=== PATIENT | female | born 1980 | race Caucasian/White ===

== ENCOUNTER 2018-03-29 09:55 | Inpatient (IN) ==
[2018-03-29] MEDS ORDERED: Sod Chloride 0.9% Inj 1,000 ML IV.CONT PRN (10:32)
[2018-03-29] MEDS ORDERED: Naloxone Inj 0.4 MG/ML Vial IV.PUSH PRN (10:32)
[2018-03-29] MEDS ORDERED: Sodium Chlor 0.9% Inj 500 ML IV.SIG PRN (10:32)
[2018-03-29] MEDS ORDERED: fentaNYL Citrate Inj 100 MCG/2 ML Ampul IV.PUSH PRN ×2 (10:32)
[2018-03-29] MEDS ORDERED: Oxytocin 30 Units/500ml Premix 30 UNITS/500 ML BAG IV.SIG ONE (10:32)
--- NOTE | 2018-03-29 10:38 | P.HPOB ---
History of Present Illness Primary Care Physician: Anthony Manning Chief Complaint: Contractions History of Present Illness: This patient is 37-year-old white female A2 at [address] Manning for care and presents complaining of contractions, no bleeding or leakage of fluid. Baby is active, NST is reactive she is eliseo every 2 -3 minutes Weeks Gestation:: 38 Para: 0 : 3 Total # of Miscarriage(s): 2 Review of Systems All other systems reviewed negative except as stated in HPI PMFSH - Tobacco History Smoking Status: Never smoker - Alcohol History How Often Do You Have a Drink Containing Alcohol: Never - Substance Use History Substance History: No History of Abuse - Travel History History of Recent Travel: No Recent Travel in the [place] Within the Last 8 Weeks: No Recent Travel Out of the Country Within the Last 8 Weeks: No Medications and Allergies Active Medications: Active Medications Citric Acid/Sodium Citrate (Sodium Citrate/Citric Acid Liq) 30 ml PO [employer] SHAILESH Stop: 04/02/18 10:44 Fentanyl Citrate (Fentanyl Inj) 50 mcg IV.PUSH Q1H PRN PRN Reason: Pain Scale 3 - 5 Fentanyl Citrate (Fentanyl Inj) 100 mcg IV.PUSH Q1H PRN PRN Reason: PAIN SCALE 6 TO 10 Lactated Ringer's (Lr 1000 Ml Inj) 1,000 mls @ 3,000 mls/hr IV.SIG UNSCH PRN PRN Reason: compromise or epidural Lactated Ringer's (Lr 1000 Ml Inj) 1,000 mls @ 125 mls/hr IV.CONT .Q8H SHAILESH Sodium Chloride (Ns Inj) 1,000 mls @ 100 mls/hr IV.CONT .Q10H PRN PRN Reason: SEE LABEL COMMENTS Oxytocin (Pitocin 30 Units/Ns 500 Ml Premix) 30 units in 500 mls @ 999 mls/hr IV.SIG BOLUS ONE Stop: 03/29/18 11:02 Sodium Chloride (Ns Inj) 500 mls @ 1,000 mls/hr IV.SIG UNSCH PRN PRN Reason: SEE LABEL COMMENTS Lidocaine HCl (Xylocaine 1% Inj) 0.1 ml I-DERMAL PRN PRN PRN Reason: For IV start Stop: 04/01/18 10:31 Lidocaine HCl (Xylocaine 1% Inj) 10 ml INFILTRATN PRN PRN PRN Reason: For episiotomy repair Stop: 03/31/18 10:31 Mineral Oil (Muri-Lube Oil) 10 ml TOPICAL PRN PRN PRN Reason: PRN perineal massage Naloxone HCl (Narcan Inj) 0.1 mg IV.PUSH Q2M PRN PRN Reason: for opiate reversal Allergies Allergy/AdvReac Type Severity Reaction Status Date / Time Penicillins Allergy Severe ITCHY Verified 09/01/17 00:46 Home Medications Medication Instructions Recorded Confirmed Type Vitamin 1 tab CHEW DAILY 03/02/18 03/02/18 History citalopram 03/02/18 History ondansetron [Zofran ODT] 1 tab PO Q6HR 03/02/18 03/02/18 History Exam Vital signs: Vital Signs 03/29/18 10:20 Temperature 98.8 F Pulse Rate 81 Respiratory Rate 19 Blood Pressure 127/86 Narrative: GENERAL: Well-nourished, well-developed patient. SKIN: Warm and dry. HEAD: Normocephalic and atraumatic. EYES: No scleral icterus. No injection or drainage. ENT: No nasal drainage noted. Mucous membranes pink. Airway patent. NECK: Supple, trachea midline. No JVD. CARDIOVASCULAR: Regular rate and rhythm without murmurs, gallops, or rubs. RESPIRATORY: Breath sounds equal bilaterally. No accessory muscle use. BREASTS: Bilateral exam showed no masses , no retractions, no nipple discharge. ABDOMEN/GI: Abdomen soft, non-tender, bowel sounds present, no rebound, no guarding Gravid to [38-] weeks size Fundal Height: [-38] GENITOURINARY: External Genitalia: intact and normal in appearance BUS glands: [-] Cervix: [post-] Dilatation: [4-] Effacement: [-90] Station: [-1] Presentation: [vtx-] Membranes: [intact ] Uterine Contractions: [q 2-3 min-] FHT's: Category: [1-] Baseline: [133-] Reactive: [R-] Variability: [mod-] Decels: [0-] EXTREMITIES: No cyanosis or edema. BACK: Nontender without obvious deformity. No CVA tenderness. NEUROLOGICAL: Awake and alert. Motor and sensory grossly within normal limits. Five out of 5 muscle strength in all muscle groups. Normal speech. Results - Labs Group B Strep: Negative Caprini VTE Risk Assessment Caprini VTE Risk Assessment: No/Low Risk (score <= 1) Caprini Risk Assessment Model: Point Value = 1 Point Value = 2 Point Value = 3 Point Value = 5 Age 41-60 Minor surgery BMI > 25 kg/m2 Swollen legs Varicose veins or History of unexplained or recurrent spontaneous Oral contraceptives or hormone replacement Sepsis (< 1 month) Serious lung disease, including pneumonia (< 1 month) Abnormal pulmonary function Acute myocardial infarction Congestive heart failure (< 1 month) History of inflammatory bowel disease Medical patient at bed rest Age 61-74 Arthroscopic surgery Major open surgery (> 45 min) Laparoscopic surgery (> 45 min) Malignancy Confined to bed (> 72 hours) Immobilizing plaster cast Central venous access Age >= 75 History of VTE Family history of VTE Factor V Leiden Prothrombin [id number] Lupus anticoagulant Anticardiolipin antibodies Elevated serum homocysteine Heparin-induced thrombocytopenia Other congenital or acquired thrombophilia Stroke (< 1 month) Elective arthroplasty Hip, pelvis, or leg fracture Acute spinal cord injury (< 1 month) Prophylaxis Regimen: Total Risk Factor Score Risk Level Prophylaxis Regimen 0-1 Low Early ambulation 2 Moderate Order ONE of the following: *Sequential Compression Device (SCD) *Heparin 5000 units SQ BID 3-4 Higher Order ONE of the following medications: *Heparin 5000 units SQ TID *Enoxaparin/Lovenox 40 mg SQ daily (WT < 150 kg, CrCl > 30 mL/min) *Enoxaparin/Lovenox 30 mg SQ daily (WT < 150 kg, CrCl > 10-29 mL/min) *Enoxaparin/Lovenox 30 mg SQ BID (WT < 150 kg, CrCl > 30 mL/min) AND/OR *Sequential Compression Device (SCD) 5 or more Highest Order ONE of the following medications: *Heparin 5000 units SQ TID (Preferred with Epidurals) *Enoxaparin/Lovenox 40 mg SQ daily (WT < 150 kg, CrCl > 30 mL/min) *Enoxaparin/Lovenox 30 mg SQ daily (WT < 150 kg, CrCl > 10-29 mL/min) *Enoxaparin/Lovenox 30 mg SQ BID (WT < 150 kg, CrCl > 30 mL/min) AND *Sequential Compression Device (SCD) Assessment and Plan - Diagnosis (1) Uterine contractions during Code(s): O62.2 - Other uterine inertia Status: Acute (2) 38 weeks gestation of Code(s): Z3A.38 - 38 weeks gestation of Status: Acute - Plan This 38-week primiparous patient is in early labor with a cervix that is 490/-1 /vertex and that she sees Dr. Manning for care. NST is reactive contractions noted on the monitor that she describes as painful. She is having no other obstetric problem or complaint. Plan for this patient is admit to labor and delivery, augment labor as needed, anticipate vaginal delivery discussed with her OB provider
[2018-03-29] MEDS ORDERED: Citric Acid/Sodium Citrate Liq 30 ML UDC PO SCH (10:45)
[2018-03-29 11:41] LABS: Baso % (Auto) 0.4 % (0.0-2.0); Eos % (Auto) 0.4 % (0.0-4.0); Hematocrit 34.4 % (35.0-46.0); Hemoglobin 10.7 gm/dL (11.6-15.3); Lymph # (Auto) 1.8 th/mm3 (1.0-4.8); Lymph % (Auto) 18.2 % (9.0-44.0); Mean Corpuscular HGB Conc 31.2 % (32.0-36.0); Mean Corpuscular Hemoglobin 24.2 pg (27.0-34.0); Mean Corpuscular Volume 77.7 fL (80.0-100.0); Mean Platelet Volume 11.4 fL (7.0-11.0); Mono # (Auto) 0.8 th/mm3 (0.0-0.9); Mono % (Auto) 7.8 % (0.0-8.0); Neut # (Auto) 7.1 th/mm3 (1.8-7.7); Neut % (Auto) 73.2 % (16.0-70.0); Platelet Count 214 th/mm3 (150-450); Red Blood Count 4.43 mil/mm3 (4.00-5.30); Red Cell Distribution Width 15.5 % (11.6-17.2); White Blood Count 9.7 th/mm3 (4.0-11.0)
[2018-03-29 11:52] LABS: Amphetamine Urine With Conf Neg (Neg); Benzodiazepine Urine With Conf Neg (Neg)
[2018-03-29 11:54] LABS: Bacteria,Urine Occasional /hpf; Bilirubin,Urine Negative (Negative); Clarity,Urine Hazy (Clear); Color,Urine Yellow (Yellw/Straw); Glucose,Urine (UA) Negative (Negative); Hyaline Casts,Urine 3 /lpf (0-3); Leukocyte Esterase,Urine Large (Negative); Mucus,Urine Few /lpf (Occasional); Nitrite,Urine Negative (Negative); Specific Gravity,Urine 1.019 (1.002-1.035); Squamous Epithelial Cell,Urine 14 /hpf (0-5)
[2018-03-29] MEDS ORDERED: fentaNYL 2MCG-Bupiv 0.125% Epi 150 ML EPIDURAL ONE (11:56)
[2018-03-29] MEDS ORDERED: Oxytocin 30 Units/500ml Premix 30 UNITS/500 ML BAG IV.SIG PRN (14:09)
[2018-03-29] MEDS ORDERED: fentaNYL Citrate Inj 100 MCG/2 ML Ampul EPIDURAL ONE (15:13)
[2018-03-29] MEDS ORDERED: fentaNYL 2MCG-Bupiv 0.125% Epi 150 ML EPIDURAL PRN (15:13)
[2018-03-30] MEDS ORDERED: Witch Hazel 50%/Glyderin 12.5% 40 Pad Jar RECTAL PRN (00:51)
[2018-03-30] MEDS ORDERED: Benzocaine 20% Top Spray 60 ML Can TOPICAL PRN (00:51)
[2018-03-30] MEDS ORDERED: Bisacodyl 10 MG Supp RECTAL PRN (00:51)
[2018-03-30] MEDS ORDERED: Zolpidem Tartrate 5 MG Tablet PO PRN (00:51)
[2018-03-30] MEDS ORDERED: Oxytocin 30 Units/500ml Premix 30 UNITS/500 ML BAG IV.CONT PRN (00:51)
[2018-03-30] MEDS ORDERED: Naloxone Inj 0.4 MG/ML Vial IV.PUSH PRN (00:51)
--- NOTE | 2018-03-30 00:51 | P.OBDELI ---
Weeks Gestation: 38 Patient Started Active Labor: Yes Artificial Rupture of Membrane: Yes Anesthesia: Epidural Episiotomy: none Vaginal Delivery: Normal, Spontaneous Presentation: Occiput anterior Nuchal Cord: x2 Delayed Cord Clamping (45 sec): No Placenta: Spontaneous delivery, Intact, 3 vessel cord Laceration: Perineal, 1 deg Repair: Chromic running Estimated blood loss (mL): 300 Infant: Male
--- NOTE | 2018-03-30 07:01 | P.PNOB ---
Subjective Post day: 0 Objective Vital Signs/I&O: Vital Signs 03/29/18 10:20 03/29/18 13:13 03/29/18 13:21 Temperature 98.8 F Pulse Rate 81 78 79 Respiratory Rate 19 Blood Pressure 127/86 114/72 99/60 L 03/29/18 13:31 03/29/18 15:31 03/29/18 16:01 Temperature Pulse Rate 76 71 80 Respiratory Rate Blood Pressure 122/76 117/79 114/68 03/29/18 16:30 03/29/18 16:45 03/29/18 17:01 Temperature 97.7 F Pulse Rate 155 H 78 Respiratory Rate 18 Blood Pressure 122/81 111/80 03/29/18 18:01 03/29/18 18:30 03/29/18 19:01 Temperature Pulse Rate 81 89 74 Respiratory Rate Blood Pressure 116/81 124/70 104/59 L 03/29/18 19:15 03/29/18 19:34 03/29/18 19:35 Temperature 98.1 F Pulse Rate 86 Respiratory Rate 18 18 Blood Pressure 96/64 L 03/29/18 20:09 03/29/18 20:10 03/29/18 20:30 Temperature Pulse Rate 102 H 91 H Respiratory Rate 18 Blood Pressure 123/68 124/71 03/29/18 20:35 03/29/18 21:04 03/29/18 21:24 Temperature 99.4 F Pulse Rate 110 H Respiratory Rate 18 18 Blood Pressure 122/80 03/29/18 21:25 03/29/18 21:26 03/29/18 21:40 Temperature Pulse Rate 126 H 98 H 120 H Respiratory Rate 20 Blood Pressure 123/83 03/29/18 21:42 03/29/18 21:45 03/29/18 22:09 Temperature Pulse Rate 109 H 99 H Respiratory Rate 20 20 Blood Pressure 122/80 130/87 03/29/18 22:10 03/29/18 22:25 03/29/18 22:40 Temperature Pulse Rate 111 H 148 H 108 H Respiratory Rate Blood Pressure 03/29/18 22:46 03/29/18 22:47 03/29/18 22:55 Temperature 99.3 F Pulse Rate 111 H 113 H Respiratory Rate 20 Blood Pressure 138/71 03/29/18 23:10 03/29/18 23:45 03/29/18 23:46 Temperature Pulse Rate 122 H 134 H Respiratory Rate 22 Blood Pressure 117/77 03/29/18 23:50 03/30/18 00:10 03/30/18 00:38 Temperature 98.9 F Pulse Rate 117 H 95 H 100 H Respiratory Rate 18 Blood Pressure 127/78 03/30/18 00:58 03/30/18 01:00 03/30/18 01:05 Temperature Pulse Rate 100 H 106 H Respiratory Rate 18 Blood Pressure 130/48 L 124/72 03/30/18 01:15 03/30/18 01:20 03/30/18 01:35 Temperature 99.3 F Pulse Rate 100 H 89 Respiratory Rate 18 18 Blood Pressure 116/73 120/71 03/30/18 02:43 03/30/18 03:20 Temperature 97.7 F Pulse Rate 73 67 Respiratory Rate 18 18 Blood Pressure 116/73 121/82 Intake & Output 03/29/18 03/29/18 03/30/18 06:59 18:59 06:59 Intake Total 1000 / 1000 Balance 1000 / 1000 Weight 113.398 kg Intake: IV 1000 / 1000 LR 1000 mL Inj 1,000 ML @ 3000 1000 / 1000 mls/hr IV.SIG UNSCH PRN Rx#: [id number] Other: Weight On Admission 113.398 kg Result Diagrams: 03/29/18 11:16 Objective Remarks: GENERAL: Well-nourished, well-developed patient. CARDIOVASCULAR: Regular rate and rhythm without murmurs, gallops, or rubs. RESPIRATORY: Breath sounds equal bilaterally. No accessory muscle use. ABDOMEN/GI: Abdomen soft, non-tender. Fundus: Firm, non-tender at umbilicus. GENITOURINARY: Light to moderate bleeding. EXTREMITIES: No cyanosis or edema, non-tender, without signs of DVT. Medications and IVs: Active Medications Acetaminophen (Tylenol) 650 mg PO Q4H PRN PRN Reason: PAIN SCALE 1 TO 2 Al Hydroxide/Mg Hydroxide (Milk Of Magnesia Liq) 30 ml PO Q12H PRN PRN Reason: Mild Constipation Benzocaine (Americaine 20% [place]) 1 spray TOPICAL Q4H PRN PRN Reason: For Perineum Discomfort Last Admin: 03/30/18 03:52 Dose: 1 spray Bisacodyl (Dulcolax Supp) 10 mg RECTAL DAILY PRN PRN Reason: SEVERE CONSITIPATION Citric Acid/Sodium Citrate (Sodium Citrate/Citric Acid Liq) 30 ml PO [employer] [facility] Stop: 04/02/18 10:44 Diphtheria/Pertussis/Tetanus Vacc (Boostrix Vaccine Inj) 0.5 ml IM .ONCE ONE Stop: 03/30/18 16:01 Ephedrine Sulfate (Ephedrine/Ns Syringe) 10 mg IV.PUSH UNSCH PRN PRN Reason: SEE LABEL COMMENTS Stop: 03/30/18 15:13 Fentanyl Citrate (Fentanyl Inj) 50 mcg IV.PUSH Q1H PRN PRN Reason: Pain Scale 3 - 5 Fentanyl Citrate (Fentanyl Inj) 100 mcg IV.PUSH Q1H PRN PRN Reason: PAIN SCALE 6 TO 10 Lactated Ringer's (Lr 1000 Ml Inj) 1,000 mls @ 3,000 mls/hr IV.SIG UNSCH PRN PRN Reason: compromise or epidural Last Infusion: 03/29/18 16:50 Dose: Infused Lactated Ringer's (Lr 1000 Ml Inj) 1,000 mls @ 125 mls/hr IV.CONT .Q8H [facility] Last Admin: 03/30/18 03:53 Dose: Not Given Sodium Chloride (Ns Inj) 1,000 mls @ 100 mls/hr IV.CONT .Q10H PRN PRN Reason: SEE LABEL COMMENTS Sodium Chloride (Ns Inj) 500 mls @ 1,000 mls/hr IV.SIG UNSCH PRN PRN Reason: SEE LABEL COMMENTS Oxytocin (Pitocin 30 Units/Ns 500 Ml Premix) 30 units in 500 mls @ 2 mls/hr IV.SIG TITRATE PRN; Protocol PRN Reason: For induction of labor Last Admin: 03/29/18 14:20 Dose: 2 milliunit/min, 2 mls/hr Fentanyl/Bupivacaine/Sodium Chlor (Fentanyl 2 Mcg-Bupiv 0.125% Epi) 150 mls @ 12 mls/hr EPIDURAL PRN PRN PRN Reason: for Labor Pain Last Admin: 03/29/18 19:01 Dose: 12 mls/hr Oxytocin (Pitocin 30 Units/Ns 500 Ml Premix) 30 units in 500 mls @ 100 mls/hr IV.CONT UNSCH PRN PRN Reason: Heavy bleeding Ibuprofen (Motrin) 800 mg PO Q8H PRN PRN Reason: For Cramping Last Admin: 03/30/18 06:50 Dose: 800 mg Lactulose (Lactulose Liq) 30 ml PO DAILY PRN PRN Reason: SEVERE CONSITIPATION Lidocaine HCl (Xylocaine 1% Inj) 0.1 ml I-DERMAL PRN PRN PRN Reason: For IV start Stop: 04/01/18 10:31 Lidocaine HCl (Xylocaine 1% Inj) 10 ml INFILTRATN PRN PRN PRN Reason: For episiotomy repair Stop: 03/31/18 10:31 Measles/Mumps/Rubella Vaccine Live (M-M-R Ii Vaccine Inj) 0.5 ml SQ .ONCE ONE Stop: 03/30/18 16:01 Mineral Oil (Muri-Lube Oil) 10 ml TOPICAL PRN PRN PRN Reason: PRN perineal massage Miscellaneous Information (Misc Information) 1 each OTHER UNSCH PRN PRN Reason: SEE LABEL COMMENTS Stop: 03/30/18 15:13 Miscellaneous Information (Misc Information) 1 each OTHER UNSCH PRN PRN Reason: SEE LABEL COMMENTS Stop: 03/30/18 15:13 Multivi/Iron Carb/Fe Sulf/FA/Prenat ( Vitamin Chewable) 1 tab CHEW DAILY SHAILESH Naloxone HCl (Narcan Inj) 0.1 mg IV.PUSH Q2M PRN PRN Reason: for opiate reversal Naloxone HCl (Narcan Inj) 0.1 mg IV.PUSH Q2M PRN PRN Reason: for opiate reversal Ondansetron HCl (Zofran Odt) 4 mg PO Q6H PRN PRN Reason: NAUSEA OR VOMITING Oxycodone/Acetaminophen (Percocet 5/325 Mg) 1 tab PO Q4H PRN PRN Reason: PAIN SCALE 3 TO 5 Senna/Docusate Sodium (Sandy-Colace) 1 tab PO BID SHAILESH Sennosides (Senokot) 17.2 mg PO Q12H PRN PRN Reason: Moderate Constipation Sodium Chloride (Ns Flush) 2 ml IV.FLUSH BID SHAILESH Sodium Chloride (Ns Flush) 2 ml IV.FLUSH PRN PRN PRN Reason: FLUSH AFTER USING IV ACCESS Witch Yulissa/Glycerin (Tucks Pads) 1 applicatio RECTAL QID PRN PRN Reason: HEMORRHOIDS Last Admin: 03/30/18 03:52 Dose: 1 applicatio Zolpidem Tartrate (Ambien) 5 mg PO HS PRN PRN Reason: SLEEP Assessment and Plan - Plan PPD # 0 s/p , doing well, routine care
[2018-03-30] MEDS: Senna/Docusate Sodium 8.6/50 MG Tablet PO SCH ×2 (08:17→23:14)
[2018-03-30] MEDS: Prenatal Vitamin Chewable Tablet CHEW SCH (08:18)
[2018-03-30] MEDS: Acetaminophen 325 MG Tablet PO PRN ×2 (14:50→23:14)
[2018-03-30] MEDS ORDERED: Diphtheria/Tetanus/Pertussis Vaccine Inj 0.5 ML Syringe IM ONE (16:00)
[2018-03-30] MEDS ORDERED: Measles/Mumps/Rubella Vaccine Inj 0.5 ML Vial SQ ONE (16:00)
[2018-03-31] MEDS: Acetaminophen 325 MG Tablet PO PRN ×2 (07:14→23:25)
[2018-03-31] MEDS: Senna/Docusate Sodium 8.6/50 MG Tablet PO SCH ×2 (08:33→23:24)
[2018-03-31] MEDS: Prenatal Vitamin Chewable Tablet CHEW SCH (08:34)
[2018-03-31 09:33] VITALS: BP 107/70; PULSE 67; RESP 14; TEMP 97.5
[2018-03-31] MEDS ORDERED: Influenza (Quadrivalent) Vaccine 0.5 ML Syringe IM ONE (09:45)
--- NOTE | 2018-03-31 16:06 | P.PNOB ---
Subjective Post day: 1 Interval history: Pt doing well, breast feeding going well, no pain Objective Vital Signs/I&O: Vital Signs 03/30/18 20:00 03/31/18 07:40 Temperature 97.8 F 97.5 F L Pulse Rate 72 67 Respiratory Rate 18 14 Blood Pressure 107/72 107/70 Result Diagrams: 03/29/18 11:16 Objective Remarks: GENERAL: Well-nourished, well-developed patient. CARDIOVASCULAR: Regular rate and rhythm without murmurs, gallops, or rubs. RESPIRATORY: Breath sounds equal bilaterally. No accessory muscle use. ABDOMEN/GI: Abdomen soft, non-tender. Fundus: Firm, non-tender at umbilicus. GENITOURINARY: Light to moderate bleeding. EXTREMITIES: No cyanosis or edema, non-tender, without signs of DVT. Medications and IVs: Active Medications Acetaminophen (Tylenol) 650 mg PO Q4H PRN PRN Reason: PAIN SCALE 1 TO 2 Last Admin: 03/31/18 07:14 Dose: 650 mg Al Hydroxide/Mg Hydroxide (Milk Of Magnesia Liq) 30 ml PO Q12H PRN PRN Reason: Mild Constipation Benzocaine (Americaine 20% [place]) 1 spray TOPICAL Q4H PRN PRN Reason: For Perineum Discomfort Last Admin: 03/30/18 03:52 Dose: 1 spray Bisacodyl (Dulcolax Supp) 10 mg RECTAL DAILY PRN PRN Reason: SEVERE CONSITIPATION Citric Acid/Sodium Citrate (Sodium Citrate/Citric Acid Liq) 30 ml PO [employer] ENG[employer] [facility] Stop: 04/02/18 10:44 Fentanyl Citrate (Fentanyl Inj) 50 mcg IV.PUSH Q1H PRN PRN Reason: Pain Scale 3 - 5 Fentanyl Citrate (Fentanyl Inj) 100 mcg IV.PUSH Q1H PRN PRN Reason: PAIN SCALE 6 TO 10 Lactated Ringer's (Lr 1000 Ml Inj) 1,000 mls @ 3,000 mls/hr IV.SIG UNSCH PRN PRN Reason: compromise or epidural Last Infusion: 03/29/18 16:50 Dose: Infused Lactated Ringer's (Lr 1000 Ml Inj) 1,000 mls @ 125 mls/hr IV.CONT .Q8H [facility] Last Admin: 03/31/18 09:51 Dose: Not Given Sodium Chloride (Ns Inj) 1,000 mls @ 100 mls/hr IV.CONT .Q10H PRN PRN Reason: SEE LABEL COMMENTS Sodium Chloride (Ns Inj) 500 mls @ 1,000 mls/hr IV.SIG UNSCH PRN PRN Reason: SEE LABEL COMMENTS Oxytocin (Pitocin 30 Units/Ns 500 Ml Premix) 30 units in 500 mls @ 2 mls/hr IV.SIG TITRATE PRN; Protocol PRN Reason: For induction of labor Last Admin: 03/29/18 14:20 Dose: 2 milliunit/min, 2 mls/hr Fentanyl/Bupivacaine/Sodium Chlor (Fentanyl 2 Mcg-Bupiv 0.125% Epi) 150 mls @ 12 mls/hr EPIDURAL PRN PRN PRN Reason: for Labor Pain Last Admin: 03/29/18 19:01 Dose: 12 mls/hr Oxytocin (Pitocin 30 Units/Ns 500 Ml Premix) 30 units in 500 mls @ 100 mls/hr IV.CONT UNSCH PRN PRN Reason: Heavy bleeding Ibuprofen (Motrin) 800 mg PO Q8H PRN PRN Reason: For Cramping Last Admin: 03/31/18 15:46 Dose: 800 mg Lactulose (Lactulose Liq) 30 ml PO DAILY PRN PRN Reason: SEVERE CONSITIPATION Lidocaine HCl (Xylocaine 1% Inj) 0.1 ml I-DERMAL PRN PRN PRN Reason: For IV start Stop: 04/01/18 10:31 Mineral Oil (Muri-Lube Oil) 10 ml TOPICAL PRN PRN PRN Reason: PRN perineal massage Multivi/Iron Carb/Fe Sulf/FA/Prenat ( Vitamin Chewable) 1 tab CHEW DAILY SHAILESH Last Admin: 03/31/18 08:34 Dose: 1 tab Naloxone HCl (Narcan Inj) 0.1 mg IV.PUSH Q2M PRN PRN Reason: for opiate reversal Naloxone HCl (Narcan Inj) 0.1 mg IV.PUSH Q2M PRN PRN Reason: for opiate reversal Ondansetron HCl (Zofran Odt) 4 mg PO Q6H PRN PRN Reason: NAUSEA OR VOMITING Oxycodone/Acetaminophen (Percocet 5/325 Mg) 1 tab PO Q4H PRN PRN Reason: PAIN SCALE 3 TO 5 Senna/Docusate Sodium (Sandy-Colace) 1 tab PO BID [facility] Last Admin: 03/31/18 08:33 Dose: 1 tab Sennosides (Senokot) 17.2 mg PO Q12H PRN PRN Reason: Moderate Constipation Sodium Chloride (Ns Flush) 2 ml IV.FLUSH BID [facility] Last Admin: 03/31/18 08:33 Dose: 2 ml Sodium Chloride (Ns Flush) 2 ml IV.FLUSH PRN PRN PRN Reason: FLUSH AFTER USING IV ACCESS Witch Yulissa/Glycerin (Tucks Pads) 1 applicatio RECTAL QID PRN PRN Reason: HEMORRHOIDS Last Admin: 03/30/18 03:52 Dose: 1 applicatio Zolpidem Tartrate (Ambien) 5 mg PO HS PRN PRN Reason: SLEEP Assessment and Plan - Plan PPD # 1 s/p , doing well, routine care
[2018-04-01] MEDS ORDERED: ALPRAZolam 0.5 MG Tablet PO ONE (01:52)
--- NOTE | 2018-04-01 01:52 | P.OBGPN ---
37 yo had . now with anxiety, she is breast feeding and had to take Xanax in the for episodes of anxiety. She has a 15 year history of celexa use that she stopped with the . She is having an acute episode and needs something
[2018-04-01] MEDS: Acetaminophen 325 MG Tablet PO PRN (07:55)
[2018-04-01] MEDS: Prenatal Vitamin Chewable Tablet CHEW SCH (09:55)
[2018-04-01] MEDS: Senna/Docusate Sodium 8.6/50 MG Tablet PO SCH (11:12)
== END 2018-04-01 13:20 | disposition home or self-care (01) ==
LOC: HOBED 09:55 → H2E 10:40 → H1EA 03-30 03:06
PROVIDERS: ADMIT Obstetrics & Gynecology; ATTEND Obstetrics & Gynecology